=== PATIENT | male | born 1955 | race Caucasian/White ===

== ENCOUNTER → 2024-09-20 09:10 | Outpatient (REF) | payer MEDICARE, OTHER, SELFPAY ==
[2024-09-20 10:22] LABS: Hematocrit 42.5 % (39.0-52.0); Hemoglobin 13.9 g/dL (13.0-18.0); Mean Corp Hgb Conc. 32.7 g/dL (33.0-37.0); Mean Corpuscular Hgb 27.3 pg (27.0-31.0); Mean Corpuscular Volume 83.5 fL (80.0-94.0); Mean Platelet Volume 10.5 fL (7.4-10.4); Platelet Count 270 10^3/uL (130-400); Red Blood Cell Count 5.09 10^6/uL (4.70-6.10); Red Cell Dist. Width 13.2 % (11.5-14.5); White Blood Cell Count 6.5 10^3/uL (4.8-10.8)
== END ==
LOC: SDSPAT 09:10
PROVIDERS: ATTENDING PHYSICIAN Otolaryngology; FAMILY PHYSICIAN Internal Medicine
DX: Z01.818 Encounter for other preprocedural examination (principal)
CPT/HCPCS: 36415; 85027; 93005

== ENCOUNTER 2024-10-13 06:04 | Day surgery (SDC) | payer MEDICARE, OTHER, SELFPAY ==
[2024-09-20 14:03] VITALS: BMI 25.7
[2024-10-13] VITALS (10 sets, daily range): BP systolic 91–147; BP diastolic 59–92; BMI 25.7
[2024-10-13] MEDS: NORMOSOL-R/PLASMALYTE-A 1000 IV (08:47)
== END 2024-10-13 12:15 | disposition home or self-care (01) ==
LOC: SDS 06:04
PROVIDERS: ATTENDING PHYSICIAN Otolaryngology; FAMILY PHYSICIAN Internal Medicine
DX: H65.93 Unspecified nonsuppurative otitis media, bilateral (principal); H91.90 Unspecified hearing loss, unspecified ear; H90.3 Sensorineural hearing loss, bilateral
CPT/HCPCS: 69436; L8699